=== PATIENT | female | born 1980 | race Two or more races ===

== ENCOUNTER 2016-07-02 14:37 | Emergency (ER) | payer MEDICAID ==
[~2016-07-02] VITALS: Ht 149.9 cm; Wt 68.0 kg
[2016-07-02 15:07] VITALS: BP 121/82
[2016-07-02] MEDS ORDERED: Ketorolac 60mg Inj IM ONE (15:45)
--- NOTE | 2016-07-02 16:49 | Emergency Room Report ---
History of Present Illness General Chief Complaint: Pain Source: Patient Present Illness HPI 35-year-old female presents to emergency Department complaining of 9/10 in severity pain to the right buttock, right side of the lower back in addition to pain, swelling and bruising to the right middle finger status post mechanical slip and fall earlier today. Patient denies hitting her head she denies loss of consciousness. She denies bony tenderness of the back or hip. Denies previous injuries . Denies numbness tingling or loss of sensation or gross motor movements of the extremities, incontinence of bowel or bladder. Denies CP , Palpitations, LOC, AMS, dizziness, Changes in Vision, Sensation, paresthesias , or a sudden severe headache. Allergies: Coded Allergies: No Known Allergies (Unverified , 07/02/16) Patient History Past Medical History: see triage record Past Surgical History: none Pertinent Family History: none Last Menstrual Period: 04/14/16 Now: No Immunizations: UTD Reviewed Nursing Documentation: PMH: Agreed, PSxH: Agreed Nursing Documentation-PMH Past Medical History: No Stated History Review of Systems All Other Systems: negative except mentioned in HPI Physical Exam Vital Signs Date Time Temp Pulse Resp B/P Pulse Ox O2 Delivery O2 Flow Rate FiO2 07/02/16 15:07 98.1 105 17 121/82 98 Room Air Sp02 EP Interpretation: reviewed, normal General Appearance: no apparent distress, alert, GCS 15, non-toxic Head: normocephalic, atraumatic Eyes: bilateral eye PERRL, bilateral eye normal inspection ENT: hearing grossly normal, normal pharynx, no angioedema, normal voice Neck: full range of motion, no bony tend, supple/symm/no masses Respiratory: chest non-tender, lungs clear, normal breath sounds, speaking full sentences Cardiovascular #1: regular rate, rhythm, no edema Musculoskeletal: back normal, gait/station normal, normal range of motion, other - right lateral paraspinal ttp, no midline TTP, TTP to the right upper buttock, no bony ttp, no obvious deformities, TTP, swelling and bruising noted to the right middle finger at the PIP joint, FROM with pain., tender - right lateral paraspinal ttp, no midline TTP, TTP to the right upper buttock, no bony ttp, no obvious deformities, TTP, swelling and bruising noted to the right middle finger at the PIP joint, FROM with pain. Neurologic: alert, oriented x3, responsive, motor strength/tone normal, sensory intact, speech normal Psychiatric: judgement/insight normal, memory normal, mood/affect normal, no suicidal/homicidal ideation Skin: normal color, no rash, warm/dry, well hydrated Medical Decision Making PA Attestation Dr. Baron is my supervising Physician whom patient management has been discussed with. Diagnostic Impression: Primary Impression: Contusion of right hip and thigh Qualified Codes: S70.01XA - Contusion of right hip, initial encounter; S70.11XA - Contusion of right thigh, initial encounter Additional Impressions: Sprained finger and thumb of right hand Qualified Codes: S63.619A - Unspecified sprain of unspecified finger, initial encounter; S63.601A - Unspecified sprain of right thumb, initial encounter Back muscle spasm ER Course 35-year-old female presents to emergency Department complaining of 9/10 in severity pain to the right buttock, right side of the lower back in addition to pain, swelling and bruising to the right middle finger status post mechanical slip and fall earlier today. Patient denies hitting her head she denies loss of consciousness. She denies bony tenderness of the back or hip. Denies previous injuries. Ddx considered but are not limited to Fracture, dislocation, contusion, Sprain/ Strain/Spasm, . Vital signs: are WNL, pt. is afebrile H&PE are most consistent with contusion of right buttock and low back, contusion of finger, will r/o fracture with imaging. ORDERS: - X-ray Right hand 3 views - negative for fx, Dislocation, or significant soft tissue injury, per preliminary read in ED by Dr. Baron ED INTERVENTIONS: - 40mg IM Toradol -350mg Soma PO -Finger Splint applied to the right middle finger by military pay technician. Pt. remains neurovascularly intact. DISCHARGE: At this time pt. is stable for d/c to home. Will provide printed patient care instructions, and any necessary prescriptions. Care plan and follow up instructions have been discussed with the patient prior to discharge. Last Vital Signs Date Time Temp Pulse Resp B/P Pulse Ox O2 Delivery O2 Flow Rate FiO2 07/02/16 15:07 98.1 105 17 121/82 98 Room Air Disposition: HOME, SELF-CARE Condition: Stable Scripts Ibuprofen* (MOTRIN*) 400 Mg Tablet 400 MG ORAL THREE TIMES A DAY, #30 TAB 0 Refills Prov: Natalie Abbott 07/02/16 Acetaminophen* (TYLENOL EXTRA STRENGTH*) 500 Mg Tablet 500 MG ORAL Q6H, #30 TAB 0 Refills Prov: Natalie Abbott 07/02/16 Cyclobenzaprine Hcl* (FLEXERIL*) 10 Mg Tablet 10 MG ORAL THREE TIMES A DAY for 7 Days, #21 TAB Prov: Natalie Abbott 07/02/16 Referrals: NOT CHOSEN IPA/MD,REFERRING (PCP) Patient Instructions: Back Pain, Adult, [id number], Contusion, [id number], Finger Sprain, [id number] Additional Instructions: Take medications as directed. Follow up with PCP in 3-5 days Return sooner to ED if new symptoms occur, or current symptoms become worse. Do not drink alcohol, drive, or operate heavy machinery while taking Muscle relaxer as this may cause drowsiness. - Please note that this Emergency Department Report was dictated using [employer] technology software, occasionally this can lead to erroneous entry secondary to interpretation by the dictation equipment. Natalie Abbott Jul 02, 2016 16:49
[2016-07-02] MEDS ORDERED: CYCLOBENZAPRINE10 MG ORAL (16:50)
[2016-07-02] MEDS ORDERED: IBUPROFEN400 MG ORAL (16:50)
[2016-07-02] MEDS ORDERED: TYLENOL EXTRA500 MG ORAL (16:50)
[2016-07-02 17:03] VITALS: BP 133/99
--- NOTE | 2016-07-29 14:32 | Diagnostic Imaging Report ---
Indication: PAIN, status post fall Technique: 3 views . hand Comparison: none Findings: No acute fractures. No dislocations. Joint spaces are preserved. Impression: Negative
== END 2016-07-02 17:00 | disposition home or self-care (01) ==
LOC: EMR 16:15
DX: S70.01XA Contusion of right hip, initial encounter (principal); S70.11XA Contusion of right thigh, initial encounter; S63.612A Unspecified sprain of right middle finger, initial encounter; S63.601A Unspecified sprain of right thumb, initial encounter; W01.0XXA Fall on same level from slipping, tripping and stumbling without subsequent striking against object, initial encounter; Y93.9 Activity, unspecified; Y92.9 Unspecified place or not applicable; Y99.9 Unspecified external cause status; M62.830 Muscle spasm of back
CPT/HCPCS: 29130; 96372; 99284

== ENCOUNTER 2016-10-03 22:52 | Emergency (ER) | payer MEDICAID ==
[~2016-10-03] VITALS: Ht 149.9 cm; Wt 70.3 kg
[~2016-10-03 22:52] MED LIST: CYCLOBENZAPRINE10 MG ORAL; IBUPROFEN400 MG ORAL; TYLENOL EXTRA500 MG ORAL
[2016-10-03] MEDS ORDERED: DEPO-PROVE150 MG/1 M IM (23:01)
[2016-10-03] MEDS ORDERED: IBUPROFEN600 MG ORAL (23:23)
[2016-10-03] MEDS ORDERED: AZITHROMYCIN250 MG ORAL (23:23)
[2016-10-03] MEDS ORDERED: PSEUDOEPHEDRINE60 MG PO (23:23)
--- NOTE | 2016-10-03 23:24 | Emergency Room Report ---
History of Present Illness General Chief Complaint: Upper Respiratory Illness Source: Patient Present Illness HPI Is a 36-year-old female with no past medical history. She presents with chief complaint of sore throat and coughing. Has been ongoing for last 2 weeks but worse the last few days. Also with low-grade fever the last 2 days. Also with left ear pain. No nausea no vomiting. Worse with coughing. Denies any abdominal pain or urinary complaint. Pain is 7/10. Allergies: Coded Allergies: No Known Allergies (Unverified , 07/02/16) Patient History Past Medical History: see triage record, old chart reviewed Past Surgical History: none Pertinent Family History: none Social History: Denies: smoking Last Menstrual Period: unk Now: No Immunizations: other Reviewed Nursing Documentation: PMH: Agreed, PSxH: Agreed Nursing Documentation-PMH Past Medical History: No Stated History Review of Systems Eye: Denies: blurred vision, eye pain ENT: Reports: ear pain, nose congestion, Denies: throat swelling Respiratory: Reports: cough, Denies: shortness of breath Cardiovascular: Denies: chest pain, palpitations Gastrointestinal: Denies: abdominal pain, diarrhea, nausea, vomiting Musculoskeletal: Denies: back pain, joint pain Skin: Denies: rash Neurological: Denies: headache, numbness Endocrine: Denies: increased thirst, increased urine Hematologic/Lymphatic: Denies: easy bruising All Other Systems: negative except mentioned in HPI Physical Exam Vital Signs Date Time Temp Pulse Resp B/P Pulse Ox O2 Delivery O2 Flow Rate FiO2 10/03/16 22:55 98.4 106 18 105/64 98 Room Air vital is unremarkable Sp02 EP Interpretation: reviewed, normal General Appearance: well appearing, no apparent distress, alert Head: normocephalic, atraumatic Eyes: bilateral eye EOMI, bilateral eye PERRL ENT: hearing grossly normal, normal pharynx, other - Bilateral TMs with myringitis and fluid. Neck: full range of motion, supple, no meningismus Respiratory: chest non-tender, lungs clear, normal breath sounds Cardiovascular #1: regular rate, rhythm, no murmur Gastrointestinal: normal bowel sounds, non tender, no mass, no organomegaly, no bruit, non-distended Musculoskeletal: back normal, gait/station normal, normal range of motion Psychiatric: mood/affect normal Skin: warm/dry Medical Decision Making Diagnostic Impression: Primary Impression: Upper respiratory infection Qualified Codes: J06.9 - Acute upper respiratory infection, unspecified; B97.89 - Other viral agents as the cause of diseases classified elsewhere Additional Impression: Acute otitis media, bilateral ER Course Patient presents with a viral upper rest or infection now complicated by bilateral otitis media. No evidence of sepsis, pneumonia, meningitis to name a few. We'll discharge home. We'll put on antibiotics because of secondary bacterial infection. Chest X-Ray Diagnostic Results Chest X-Ray Ordered: No Last Vital Signs Date Time Temp Pulse Resp B/P Pulse Ox O2 Delivery O2 Flow Rate FiO2 10/03/16 22:55 98.4 106 18 105/64 98 Room Air Status: improved Disposition: HOME, SELF-CARE Condition: Stable Scripts Azithromycin* (ZITHROMAX*) 250 Mg Tablet 250 MG ORAL DAILY, #6 TAB 0 Refills Take two tablets by mouth today, then take one tablet by mouth daily for four days Prov: EDU GODDARD M.D. 10/03/16 Ibuprofen* (MOTRIN*) 600 Mg Tablet 600 MG ORAL THREE TIMES A DAY, #30 TAB 0 Refills Prov: EDU GODDARD M.D. 10/03/16 Pseudoephedrine Hcl* (SUDAFED*) 60 Mg Tablet 60 MG PO Q6H, #20 TAB Prov: EDU GODDARD M.D. 10/03/16 Patient Instructions: Upper Respiratory Infection, Adult Additional Instructions: Followup with your DrJeannette in 7 days. Return if worse. EDU GODDARD M.D. Oct 03, 2016 23:24
[2016-10-03 23:27] VITALS: BP 105/64
== END 2016-10-03 23:27 | disposition home or self-care (01) ==
LOC: EMR 23:10
DX: J06.9 Acute upper respiratory infection, unspecified (principal); H66.93 Otitis media, unspecified, bilateral
CPT/HCPCS: 99284

== ENCOUNTER 2017-02-05 19:17 | Emergency (ER) | payer MEDICAID ==
[~2017-02-05] VITALS: Ht 149.9 cm; Wt 72.6 kg
[~2017-02-05 19:17] MED LIST changes: +AZITHROMYCIN250 MG ORAL; +DEPO-PROVE150 MG/1 M IM; +IBUPROFEN600 MG ORAL; +PSEUDOEPHEDRINE60 MG PO
[2017-02-05] MEDS ORDERED: Methocarbamol 750mg tab ORAL ONE (19:45)
[2017-02-05] MEDS ORDERED: Ketorolac 60mg Inj IM ONE (19:45)
[2017-02-05] MEDS ORDERED: ROBAXIN-750750 MG PO (20:00)
[2017-02-05] MEDS ORDERED: IBUPROFEN600 MG ORAL (20:00)
[2017-02-05 20:08] VITALS: BP 107/66
--- NOTE | 2017-02-05 22:20 | Emergency Room Report ---
History of Present Illness General Chief Complaint: Lower Back Pain or Injury Source: Patient Present Illness HPI The patient is a 36-year-old female presenting for lower back pain which occurred today after slipping and falling. She states that she fell onto her buttock. Pain is an 8/10 dull ache and does not radiate from the lower back. Worse with movement. She denies any numbness or tingling. She denies any previous injury to the back. She denies hitting head or loss of consciousness. She denies any other symptoms including N, V, abd pain, CP, SOB, dizziness Allergies: Coded Allergies: No Known Allergies (Unverified , 07/02/16) Patient History Past Medical History: see triage record Pertinent Family History: none Last Menstrual Period: 1 year ago Now: No Reviewed Nursing Documentation: PMH: Agreed, PSxH: Agreed Nursing Documentation-PMH Past Medical History: No Stated History Review of Systems All Other Systems: negative except mentioned in HPI Physical Exam Vital Signs Date Time Temp Pulse Resp B/P (MAP) Pulse Ox O2 Delivery O2 Flow Rate FiO2 02/05/17 19:20 98.2 92 20 108/67 98 Room Air Sp02 EP Interpretation: reviewed, normal General Appearance: no apparent distress, alert, GCS 15, non-toxic Genitourinary: normal inspection, no CVA tenderness Musculoskeletal: back normal, gait/station normal, normal range of motion, tender - bilat Lumbar paraspinal muscles Neurologic: alert, oriented x3, responsive, motor strength/tone normal, sensory intact, speech normal Psychiatric: judgement/insight normal, memory normal, mood/affect normal, no suicidal/homicidal ideation Skin: normal color, no rash, warm/dry, well hydrated Lymphatic: no adenopathy Medical Decision Making PA Attestation Dr. Price is my supervising physician. Patient management was discussed with my supervising physician Diagnostic Impression: Primary Impression: Muscle strain ER Course The patient is a 36-year-old female presenting for lower back pain Ddx considered include but not limited to lumbar strain, degenerative disease, cauda equina, chronic pain, contusion, among others PE: NAD Normal gait There is tenderness to palpation along the lumbar paraspinal muscles. No midline tenderness or step-offs. The patient is given pain medication and will be discharged home with prescription for Motrin and Robaxin. She needs to followup with her primary doctor. ER precautions given Last Vital Signs Date Time Temp Pulse Resp B/P (MAP) Pulse Ox O2 Delivery O2 Flow Rate FiO2 02/05/17 19:20 98.2 92 20 108/67 98 Room Air Status: improved Disposition: HOME, SELF-CARE Condition: Improved Scripts Methocarbamol* (ROBAXIN-750*) 750 Mg Tablet 750 MG PO TID, #21 TAB 0 Refills Prov: RICKY HDZ 02/05/17 Ibuprofen* (MOTRIN*) 600 Mg Tablet 600 MG ORAL Q8H Y for For Pain, #30 TAB 0 Refills Prov: RICKY HDZ.A. 02/05/17 Referrals: NOT CHOSEN IPA/MD,REFERRING (PCP) Patient Instructions: Back Pain, Adult Additional Instructions: I discussed my findings with the patient. All questions and concerns have been answered. Treatment and medication compliance have been addressed. I advised the patient that they need to follow up with PMD in 3-5 days. Return to ED if symptoms worsen, new symptoms arise, or if needed for any reason. Patient verbalized understanding of discharge instructions. RICKY HDZ Feb 05, 2017 22:20
== END 2017-02-05 20:08 | disposition home or self-care (01) ==
LOC: EMR 19:50
DX: S39.012A Strain of muscle, fascia and tendon of lower back, initial encounter (principal); W19.XXXA Unspecified fall, initial encounter; Y92.89 Other specified places as the place of occurrence of the external cause
CPT/HCPCS: 96372; 99284

== ENCOUNTER 2017-02-11 20:32 | Emergency (ER) | payer MEDICAID ==
[~2017-02-11] VITALS: Ht 149.9 cm; Wt 74.8 kg
[~2017-02-11 20:32] MED LIST changes: +ROBAXIN-750750 MG PO
--- NOTE | 2017-02-11 21:05 | Emergency Room Report ---
History of Present Illness General Chief Complaint: Abdominal Pain Source: Patient Present Illness HPI This is a 36-year-old female with no past medical history. She presents with complaint of left upper quadrant pain for last 3 days. Worse with eating. Pain to the back. Pain is sharp 8/10. Nausea vomiting on the first day but not now. No urinary complaint. No fever or chills. No had this problem before. No right upper quadrant pain. Allergies: Coded Allergies: No Known Allergies (Unverified , 07/02/16) Patient History Past Medical History: see triage record, old chart reviewed Past Surgical History: Pertinent Family History: none Social History: Denies: smoking Last Menstrual Period: Over a year ago, on depo shot Now: No : 3 Immunizations: other Reviewed Nursing Documentation: PMH: Agreed, PSxH: Agreed Nursing Documentation-PMH Past Medical History: No Stated History Review of Systems Eye: Denies: eye pain, blurred vision ENT: Denies: ear pain, nose congestion, throat swelling Respiratory: Denies: cough, shortness of breath Cardiovascular: Denies: chest pain, palpitations Gastrointestinal: Reports: abdominal pain, nausea, vomiting, Denies: diarrhea Musculoskeletal: Denies: back pain, joint pain Skin: Denies: rash Neurological: Denies: headache, numbness Endocrine: Denies: increased thirst, increased urine Hematologic/Lymphatic: Denies: easy bruising All Other Systems: negative except mentioned in HPI Physical Exam Vital Signs Date Time Temp Pulse Resp B/P (MAP) Pulse Ox O2 Delivery O2 Flow Rate FiO2 02/11/17 20:34 98.6 82 18 107/73 98 Room Air vitals normal Sp02 EP Interpretation: reviewed, normal General Appearance: well appearing, no apparent distress, alert Head: normocephalic, atraumatic Eyes: bilateral eye PERRL, bilateral eye EOMI ENT: hearing grossly normal, normal pharynx Neck: full range of motion, supple, no meningismus Respiratory: chest non-tender, lungs clear, normal breath sounds Cardiovascular #1: regular rate, rhythm, no murmur Gastrointestinal: normal bowel sounds, no mass, no organomegaly, no bruit, non- distended, tenderness - Mild left quadrant pain. No guarding or rebound. Musculoskeletal: back normal, gait/station normal, normal range of motion Psychiatric: mood/affect normal Skin: warm/dry Medical Decision Making Diagnostic Impression: Primary Impression: Abdominal pain Qualified Codes: R10.12 - Left upper quadrant pain ER Course This patient presents with left upper quadrant abdominal pain. CT scan unremarkable. Pain resolved. No evidence of acute abdomen or surgical issue. Obstruction. Lab Results Impression labs normal CT/MRI/US Diagnostic Results CT/MRI/US Diagnostic Results : Imaging Test Ordered: CT scan Impression read by radiologist. Negative. Last Vital Signs Date Time Temp Pulse Resp B/P (MAP) Pulse Ox O2 Delivery O2 Flow Rate FiO2 02/11/17 20:34 98.6 82 18 107/73 98 Room Air Status: improved Disposition: HOME, SELF-CARE Condition: Stable Scripts Ibuprofen* (MOTRIN*) 600 Mg Tablet 600 MG ORAL Q8H Y for For Pain, #30 TAB 0 Refills Prov: EDU GODDARD M.D. 02/11/17 Patient Instructions: Abdominal Pain, Adult Additional Instructions: Follow up with your doctor in 7 days. Return if worse. EDU GODDARD M.D. Feb 11, 2017 21:05
[2017-02-11] MEDS ORDERED: Ketorolac 30mg Inj IV ONE (21:15)
[2017-02-11 21:40] LABS: APPEARANCE,URINE CLEAR; KETONES,URINE NEGATIVE (NEGATIVE); LEUKOCYTE ESTERASE ,URINE 1+ (NEGATIVE); NITRITE,URINE NEGATIVE (NEGATIVE); PH,URINE 5 (4.5-8.0); PROTEIN,URINE NEGATIVE (NEGATIVE); UROBILINOGEN,URINE NORMAL MG/DL (0.0-1.0)
[2017-02-11 21:46] LABS: EOSINOPHILS % (AUTO) 2.4 % (0.0-3.0); LYMPHOCYTES % (AUTO) 27.3 % (20.0-45.0); MEAN CORPUSCULAR HEMOGLOBIN 30.5 PG (27.0-31.0); MEAN CORPUSCULAR HGB CONC 32.2 G/DL (32.0-36.0); MEAN CORPUSCULAR VOLUME 95 FL (80-99); MEAN PLATELET VOLUME 7.1 FL (6.5-10.1); MONOCYTES % (AUTO) 7.7 % (1.0-10.0); NEUTROPHILS % (AUTO) 61.5 % (45.0-75.0); PLATELET COUNT 284 K/UL (150-450); RED CELL DISTRIBUTION WIDTH 11.7 % (11.6-14.8); WHITE BLOOD COUNT 9.6 K/UL (4.8-10.8)
[2017-02-11 21:50] LABS: BACTERIA,URINE FEW /HPF; SQUAMOUS EPITHELIAL CELL,UR FEW /LPF (NONE/OCC); WBC,URINE 0-2 /HPF (0 - 2)
[2017-02-11 21:53] LABS: ALANINE AMINOTRANSFERASE 35 U/L (12-78); ANION GAP 8 mmol/L (5-15); ASPARTATE AMINO TRANSFERASE 21 U/L (15-37); CALCIUM 9.3 MG/DL (8.5-10.1); CARBON DIOXIDE 27 MMOL/L (21-32); CHLORIDE 105 MMOL/L (98-107); CREATININE 0.6 MG/DL (0.55-1.30); GLOMERULAR FILTRATION RATE > 60 mL/min (>60); LIPASE 137 U/L (73-393); POTASSIUM 3.9 MMOL/L (3.5-5.1); SODIUM 140 MMOL/L (136-145); TOTAL PROTEIN 7.5 G/DL (6.4-8.2)
[2017-02-11] MEDS ORDERED: IBUPROFEN600 MG ORAL (22:31)
[2017-02-11 22:40] VITALS: BP 110/62
[2017-02-11 22:42] VITALS: BP 110/62
--- NOTE | 2017-02-12 09:04 | Diagnostic Imaging Report ---
Indication: Left upper quadrant pain Technique: Spiral acquisitions obtained through the abdomen and pelvis. No oral contrast utilized, per emergency room physician request No IV contrast utilized, per referring physician request.. Multiplanar reconstructions were generated. Total dose length product 822 mGycm. CTDIvol(s) 17 mGy. Dose reduction achieved using automated exposure control Comparison: None Findings: The appendix is not definitely identified, but no findings to suggest acute appendicitis are evident. There is no evidence of diverticulosis or diverticulitis. No small bowel distention. No free or loculated intraperitoneal air or fluid is evident. There is a tiny fat-containing umbilical hernia Lack of IV contrast limits assessment of the solid organs. The liver, gallbladder, bile ducts, pancreas, spleen, adrenals, kidneys are unremarkable. No retroperitoneal or mesenteric mass or adenopathy. No pelvic mass or adenopathy. Normal uterus and adnexal structures. The the included lung bases are clear. The bones are unremarkable. Impression: Essentially unremarkable exam Incidental finding small fat-containing umbilical hernia This agrees with the preliminary interpretation provided overnight by [facility]erad[facility] service. The CT scanner at [facility] is accredited by the [employer] and the scans are performed using protocols designed to limit radiation exposure to as low as reasonably achievable to attain images of sufficient resolution adequate for diagnostic evaluation.
== END 2017-02-11 22:42 | disposition home or self-care (01) ==
LOC: EMR 21:10
DX: R10.12 Left upper quadrant pain (principal); K42.9 Umbilical hernia without obstruction or gangrene
CPT/HCPCS: 36415; 74176; 80053; 81003; 81025; 83690; 85025; 96361; 96374; 99284; J1885

== ENCOUNTER 2017-07-04 15:22 | Emergency (ER) | payer SELFPAY ==
[~2017-07-04] VITALS: Ht 149.9 cm; Wt 73.0 kg
--- NOTE | 2017-07-04 15:30 | Emergency Room Report ---
History of Present Illness General Chief Complaint: Upper Respiratory Illness Source: Patient Present Illness HPI 36 yo female patient presents to ER complaining of fever, cough, ear pain, and BOSWELL x1 week. Patient reports cough with sputum; denies blood in sputum. Denies nausea, vomiting, diarrhea. Reports ear pain bilaterally, denies hearing loss. Reports taking Mucinex and Ibuprofen for pain. Reports fever to 104 degrees 3 days ago; no fever today at presentation to ER. Reports BOSWELL and sore throat began after cough symptoms. Denies chest pain, abdominal pain, SOB. Denies dysuria, hematuria, vaginal discharge. Denies rash, vision changes, hearing loss. Reports hx of sick contacts. Denies hx of asthma or cardiovascular disease. Allergies: Coded Allergies: No Known Allergies (Unverified , 07/02/16) Patient History Past Medical History: see triage record Reviewed Nursing Documentation: PMH: Agreed, PSxH: Agreed Nursing Documentation-PMH Past Medical History: No Stated History Review of Systems All Other Systems: negative except mentioned in HPI Physical Exam Vital Signs Date Time Temp Pulse Resp B/P (MAP) Pulse Ox O2 Delivery O2 Flow Rate FiO2 07/04/17 15:25 98.6 92 20 91/64 98 Room Air 98.6 Sp02 EP Interpretation: reviewed, normal General Appearance: well appearing, no apparent distress, alert, GCS 15 Head: normocephalic, atraumatic Eyes: bilateral eye normal inspection, bilateral eye PERRL ENT: hearing grossly normal, normal pharynx, no angioedema, normal voice, TMs + canals normal, uvula midline, moist mucus membranes Neck: full range of motion Respiratory: lungs clear, normal breath sounds, no rhonchi, no respiratory distress, no accessory muscle use, no wheezing, speaking full sentences Cardiovascular #1: regular rate, rhythm, no edema Gastrointestinal: non tender, soft, no mass, non-distended, no guarding, no rebound Genitourinary: no CVA tenderness Musculoskeletal: back normal, digits/nails normal, gait/station normal, normal range of motion, non-tender Neurologic: alert, oriented x3, responsive, motor strength/tone normal, sensory intact Psychiatric: mood/affect normal Skin: no rash Lymphatic: no adenopathy Medical Decision Making PA Attestation Dr. Price is my supervising Physician whom patient management has been discussed with. Diagnostic Impression: Primary Impression: Upper respiratory infection Additional Impression: Ear ache ER Course Pt presents to ED c/o fever, cough, ear pain, and BOSWELL. DDX considered but are not limited to influenza, viral URI, strep throat, rhinitis, sinusitis, otitis media, pharyngitis, tonsillitis. VITAL SIGNS are WNL, patient is afebrile Ordered pain medication and viscous lidocaine. ER COURSE: PE benign, lungs clear to auscultation bilaterally, normal TM, no exudates in throat. Informed patient likely viral etiology of symptoms. Informed patient ear ache and BOSWELL may be secondary to cough symptoms. Denies chest pain, SOB; does not require workup at this time. DISCHARGE: At this time pt is stable for d/c to home. Patient is resting comfortably, in no acute distress, nontoxic appearing, smiling and laughing while talking. -Rx given for Sudafed -Rx given for Tylenol/Acetaminophen -Rx given for Promethazine syrup for cough sx. Patient to take medications as instructed Will provide with patient care instructions and any necessary prescriptions. Care plan and follow-up instructions provided. Patient instructed to follow-up with primary care provider in 3 - 5 days. Patient questions asked and answered. Patient reports understanding and agreement to treatment plan. ER precautions given. Patient instructed to return to ER immediately for any new or worsening of symptoms including but not limited to increasing SOB, persistent fever, intractable vomiting. Last Vital Signs Date Time Temp Pulse Resp B/P (MAP) Pulse Ox O2 Delivery O2 Flow Rate FiO2 07/04/17 15:25 98.6 92 20 91/64 98 Room Air 98.6 Disposition: HOME, SELF-CARE Condition: Stable Scripts Promethazine Hcl (PROMETHAZINE HCL*) 6.25 Mg/5 Ml Syrup 5 ML ORAL Q8H, #120 ML 0 Refills Prov: Liam Palomino.A. 07/04/17 Pseudoephedrine Hcl* (SUDAFED*) 30 Mg Tablet 30 MG PO Q6H for 7 Days, #24 TAB Prov: Liam Palomino.A. 07/04/17 Acetaminophen* (TYLENOL EXTRA STRENGTH*) 500 Mg Tablet 500 MG ORAL Q8H Y for Prn Headache/Temp > 101, #30 TAB 0 Refills Prov: Liam Palomino. 07/04/17 Patient Instructions: Earache, Upper Respiratory Infection, Adult Additional Instructions: Followup with primary care provider in 3 -5 days. Take medications as directed. Patient questions asked and answered. ER precautions given, patient instructed to return to ER immediately for any new or worsening of symptoms including but not limited to chest pain, SOB, intractable vomiting, prolonged fever. Liam Palomino Jul 04, 2017 15:30
[2017-07-04] MEDS ORDERED: TYLENOL EXTRA500 MG ORAL (15:44)
[2017-07-04] MEDS ORDERED: PSEUDOEPHEDRINE30 MG PO (15:44)
[2017-07-04] MEDS ORDERED: PROMETHAZI6.25 MG/1 ORAL (15:44)
[2017-07-04] MEDS ORDERED: Acetaminophen 500mg (ES) tab ORAL ONE (15:45)
[2017-07-04] MEDS ORDERED: Lidocaine 2% Visc 15ml soln ORAL ONE (15:45)
[2017-07-04 15:54] VITALS: BP 91/64
== END 2017-07-04 15:54 | disposition home or self-care (01) ==
LOC: EMR 15:50
DX: J06.9 Acute upper respiratory infection, unspecified (principal); H92.03 Otalgia, bilateral
CPT/HCPCS: 99284

== ENCOUNTER 2017-08-01 14:30 | Emergency (ER) | payer SELFPAY ==
[~2017-08-01] VITALS: Ht 149.9 cm; Wt 74.8 kg
[~2017-08-01 14:30] MED LIST changes: +PROMETHAZI6.25 MG/1 ORAL; +PSEUDOEPHEDRINE30 MG PO
[2017-08-01] MEDS ORDERED: NKM (14:48)
[2017-08-01] MEDS ORDERED: HYDROcodone/Acetamin 7.5/325 tab ORAL ONE (15:00)
--- NOTE | 2017-08-01 15:11 | Emergency Room Report ---
History of Present Illness General Chief Complaint: Upper Extremity Injury Source: Patient Present Illness HPI 36-year-old female presents to the emergency department complaining of 8 out of 10 in severity localized pain to the right hand, right wrist and left ankle. Status post mechanical trip and fall while cleaning earlier today. Patient reports pain is exacerbated upon ambulation. Patient states that she fell on an outstretched arm. Patient reports tenderness to the hand and right wrist. She denies hitting her head or loss of consciousness. She denies open wounds or bleeding. Denies neck or back pain. Denies numbness tingling or loss of sensation or gross motor movements of the extremities, incontinence of bowel or bladder. Denies CP, Palpitations, LOC, AMS, dizziness, Changes in Vision, Sensation, paresthesias, or a sudden severe headache. Allergies: Coded Allergies: No Known Allergies (Unverified , 07/02/16) Patient History Past Medical History: see triage record Past Surgical History: none Pertinent Family History: none Last Menstrual Period: over a year ( on depo shot) Reviewed Nursing Documentation: PMH: Agreed; PSxH: Agreed Nursing Documentation-PMH Past Medical History: No Stated History Review of Systems All Other Systems: negative except mentioned in HPI Physical Exam Vital Signs Date Time Temp Pulse Resp B/P (MAP) Pulse Ox O2 Delivery O2 Flow Rate FiO2 08/01/17 14:43 98.6 113 18 107/72 96 98.6 Sp02 EP Interpretation: reviewed, normal General Appearance: no apparent distress, alert, GCS 15, non-toxic, mild distress Head: normocephalic, atraumatic ENT: hearing grossly normal, normal voice Neck: full range of motion, no bony tend Respiratory: lungs clear, normal breath sounds, speaking full sentences Cardiovascular #1: regular rate, rhythm, normal capillary refill Musculoskeletal: back normal, normal range of motion - with pain, tender - Tenderness to palpation to the right wrist, positive snuff box tenderness to palpation and pain with axial loading of the right thumb. Patient also has lateral tenderness to palpation to the left ankle some soft tissue swelling is noted. No bruises, increased laxity of the ankle ,open wounds or obvious deformities. Neurologic: alert, oriented x3, responsive, motor strength/tone normal, sensory intact, speech normal, grossly normal Psychiatric: judgement/insight normal Skin: normal color, no rash, warm/dry, well hydrated, other - left ankle ST swelling. Medical Decision Making PA Attestation Dr. Shah is my supervising Physician whom patient management has been discussed with. Diagnostic Impression: Primary Impression: Left ankle sprain Qualified Codes: S93.402A - Sprain of unspecified ligament of left ankle, initial encounter Additional Impressions: Hand pain, right Wrist fracture, right Qualified Codes: S62.101A - Fracture of unspecified carpal bone, right wrist, initial encounter for closed fracture ER Course 36-year-old female presents to the emergency department complaining of 8 out of 10 in severity localized pain to the right hand, right wrist and left ankle. Status post mechanical trip and fall while cleaning earlier today. Patient reports pain is exacerbated upon ambulation. Patient states that she fell on an outstretched arm. Patient reports tenderness to the hand and right wrist. She denies hitting her head or loss of consciousness. She denies open wounds or bleeding. Denies neck or back pain. Denies numbness tingling or loss of sensation or gross motor movements of the extremities, incontinence of bowel or bladder. Denies CP, Palpitations, LOC, AMS, dizziness, Changes in Vision, Sensation, paresthesias, or a sudden severe headache. Ddx considered but are not limited to Fracture, dislocation, contusion, Sprain/ Strain/Spasm, scaphoid fx just to name a few. Vital signs: are WNL, pt. is afebrile H&PE are most consistent with musculoskeletal injury will perform imaging to r/ o fractures/dislocations. ORDERS: - X-ray's : no obvious fractures seen, some ST swelling of the ankle due to pt. having positive snuffbox ttp, and pain with axial loading on the right hand, she will be treated with anticipated scaphoid fx until cleared by ortho or pcp. ED INTERVENTIONS: - Nisland PO -Thumb Spika Splint applied to the right hand by sow farm barn technician. Pt. remains neurovascularly intact. Diomedes wrap applied to the left ankle. by sow farm barn technician. Pt. remains neurovascularly intact. DISCHARGE: At this time pt. is stable for d/c to home. Will provide printed patient care instructions, and any necessary prescriptions. Care plan and follow up instructions have been discussed with the patient prior to discharge. Other X-Ray Diagnostic Results Other X-Ray Diagnostic Results #1: X-Ray ordered: Right Hand # of Views/Limited Vs Complete: 3 View Indication: Pain EP Interpretation: Yes PA Xray: Interpretation reviewed, by supervising MD, and agrees with findings. Interpretation: no dislocation, no soft tissue swelling, no fractures Impression: No acute disease Electronically Signed by: Natalie Abbott PA-C Other X-Ray Diagnostic Results #2: X-Ray ordered: Right Wrist # of Views/Limited Vs Complete: 3 View Indication: Pain EP Interpretation: Yes PA Xray: Interpretation reviewed, by supervising MD, and agrees with findings. Interpretation: no dislocation, no soft tissue swelling, no fractures Impression: No acute disease Electronically Signed by: Natalie Abbott PA-C Other X-Ray Diagnostic Results #3: X-Ray ordered: Left Ankle Indication: Pain EP Interpretation: Yes PA Xray: Interpretation reviewed, by supervising MD, and agrees with findings. Interpretation: no dislocation, no fractures, other - ST Swelling noted Impression: Other - abnormal : ST swelling, no acute fx's. Electronically Signed by: Natalie Abbott PA-C Last Vital Signs Date Time Temp Pulse Resp B/P (MAP) Pulse Ox O2 Delivery O2 Flow Rate FiO2 08/01/17 15:05 98.6 08/01/17 14:43 113 18 107/72 96 Disposition: HOME, SELF-CARE Condition: Stable Scripts Hydrocodone Bit/Acetaminophen 5-325* (NORCO 5-325*) 1 Each Tablet 1 TAB ORAL Q6H PRN for For Pain, #10 TAB 0 Refills Prov: Natalie Abbott P.A. 08/01/17 Ibuprofen* (MOTRIN*) 600 Mg Tablet 600 MG ORAL THREE TIMES A DAY, #30 TAB 0 Refills Prov: Natalie Abbott P.A. 08/01/17 Patient Instructions: Ankle Sprain, Scaphoid Fracture, Wrist Additional Instructions: Take medications as directed. Follow up with a Orthopedic in 3-5 days, even if your symptoms have resolved. --Please review list of primary care clinics, if you do not already have a primary care provider Return sooner to ED if new symptoms occur, or current symptoms become worse. Do not drink alcohol, drive, or operate heavy machinery while taking Nisland as this may cause drowsiness. - Please note that this Emergency Department Report was dictated using ENEFpromotor rebuilder technology software, occasionally this can lead to erroneous entry secondary to interpretation by the dictation equipment. Natalie Abbott Aug 01, 2017 15:11
[2017-08-01] MEDS ORDERED: IBUPROFEN600 MG ORAL (15:57)
[2017-08-01] MEDS ORDERED: NORCO 5-325 TA1 EACH ORAL (15:57)
[2017-08-01 16:40] VITALS: BP 107/72
--- NOTE | 2017-08-02 10:22 | Diagnostic Imaging Report ---
Indication: pain Right hand pain Findings: 3 views of the right hand were obtained. Normal bony mineralization and alignment are demonstrated. No acute fractures, erosions, or periosteal reaction are seen. Soft tissues are unremarkable. Impression: No acute findings.
--- NOTE | 2017-08-02 10:22 | Diagnostic Imaging Report ---
Indication: Pain Findings: 3 views of the right wrist were obtained. No acute fractures, malalignment, erosions or periostitis are identified. Soft tissues are unremarkable. Impression: No acute findings.
--- NOTE | 2017-08-02 10:23 | Diagnostic Imaging Report ---
Indication: left ankle pain Comparison: None Findings: 3 views of the left ankle obtained. No acute fracture, malalignment, periostitis, or osteochondral defects are identified. Soft tissues are unremarkable. Impression: No acute findings
== END 2017-08-01 16:40 | disposition home or self-care (01) ==
LOC: EMR 14:50
DX: S93.402A Sprain of unspecified ligament of left ankle, initial encounter (principal); M25.541 Pain in joints of right hand; S62.101A Fracture of unspecified carpal bone, right wrist, initial encounter for closed fracture; W01.0XXA Fall on same level from slipping, tripping and stumbling without subsequent striking against object, initial encounter; Y93.9 Activity, unspecified; Y92.9 Unspecified place or not applicable
CPT/HCPCS: 99284

== ENCOUNTER 2017-10-28 10:10 | Emergency (ER) | payer SELFPAY ==
[~2017-10-28] VITALS: Ht 149.9 cm; Wt 72.6 kg
[~2017-10-28 10:10] MED LIST changes: +NKM; +NORCO 5-325 TA1 EACH ORAL
[2017-10-28] MEDS ORDERED: Dexamethasone 4mg/ml vial IM ONE (10:30)
--- NOTE | 2017-10-28 10:31 | Emergency Room Report ---
History of Present Illness General Chief Complaint: Sore Throat Source: Patient Present Illness HPI 37-year-old female presents emergency department complaining of 10 out of 10 in severity left-sided sore throat pain with fevers since this morning. Patient states that she took Motrin at approximately male he 2 AM. Patient denies cough , shortness of breath, or wheezing. Patient denies recent travel or ill contacts. Denies ear pain, lethargy, neck pain/stiffness, irritability, photophobia dehydration, N/V/D. Denies Cp, Palpitations, LOC, AMS, seizures, paresthesias, or changes in Hearing or vision, no Sudden severe BOSWELL. Denies hx of smoking, asthma or COPD. Allergies: Coded Allergies: No Known Allergies (Unverified , 07/02/16) Patient History Past Medical History: see triage record Past Surgical History: none Pertinent Family History: none Last Menstrual Period: 10/21/17 Now: No Immunizations: UTD Reviewed Nursing Documentation: PMH: Agreed; PSxH: Agreed Nursing Documentation-PMH Past Medical History: No Stated History Review of Systems All Other Systems: negative except mentioned in HPI Physical Exam Vital Signs Date Time Temp Pulse Resp B/P (MAP) Pulse Ox O2 Delivery O2 Flow Rate FiO2 10/28/17 10:14 98.2 79 16 114/78 97 Room Air 98.2 Sp02 EP Interpretation: reviewed, normal General Appearance: no apparent distress, alert, GCS 15, non-toxic Head: normocephalic, atraumatic Eyes: bilateral eye normal inspection, bilateral eye PERRL ENT: hearing grossly normal, normal voice, TMs + canals normal, uvula midline, moist mucus membranes, tonsillar swelling, pharyngeal erythema, tonsillar exudate Neck: full range of motion, no meningismus, no bony tend Respiratory: chest non-tender, lungs clear, normal breath sounds, no wheezing, speaking full sentences Cardiovascular #1: regular rate, rhythm Musculoskeletal: back normal, gait/station normal, normal range of motion, non- tender Neurologic: alert, oriented x3, responsive, motor strength/tone normal, sensory intact, speech normal, grossly normal Psychiatric: judgement/insight normal Skin: normal color, no rash, warm/dry, well hydrated Lymphatic: no adenopathy Medical Decision Making PA Attestation Dr. swann is my supervising Physician whom patient management has been discussed with. Diagnostic Impression: Primary Impression: Pharyngitis, acute Qualified Codes: J02.0 - Streptococcal pharyngitis ER Course 37-year-old female presents emergency department complaining of 10 out of 10 in severity left-sided sore throat pain with fevers since this morning. Patient states that she took Motrin at approximately male he 2 AM. Patient denies cough , shortness of breath, or wheezing. Patient denies recent travel or ill contacts. Denies ear pain, lethargy, neck pain/stiffness, irritability, photophobia dehydration, N/V/D. Denies Cp, Palpitations, LOC, AMS, seizures, paresthesias, or changes in Hearing or vision, no Sudden severe BOSWELL. Denies hx of smoking, asthma or COPD. Ddx considered but are not limited to: pharyngitis, strep, DISTRIBUTION ASSOCIATE, ludwigs angina, URI Vital signs: are WNL, pt. is afebrile H&PE are most consistent with: pharyngitis presumed strep. ORDERS: None required at this time as the diagnosis is clinical ED INTERVENTIONS: none required at this time. DISCHARGE: At this time pt. is stable for d/c to home. Will provide printed patient care instructions, and any necessary prescriptions. Care plan and follow up instructions have been discussed with the patient prior to discharge. Last Vital Signs Date Time Temp Pulse Resp B/P (MAP) Pulse Ox O2 Delivery O2 Flow Rate FiO2 10/28/17 10:14 98.2 79 16 114/78 97 Room Air 98.2 Disposition: HOME, SELF-CARE Condition: Stable Scripts Lidocaine HCl 2% Viscous (Lidocaine HCl 2% Viscous) 100 Ml Solution 15 ML ORAL QID, #150 ML Prov: Natalie Abbott 10/28/17 Acetaminophen* (TYLENOL EXTRA STRENGTH*) 500 Mg Tablet 500 MG ORAL Q6H PRN for Mild Pain/Temp > 100.5, #20 TAB 0 Refills Prov: Natalie Abbott 10/28/17 Amoxicillin* (AMOXIL*) 500 Mg Capsule 500 MG ORAL Q12HR for 7 Days, #14 CAP Prov: Natalie Abbott 10/28/17 Patient Instructions: Sore Throat Additional Instructions: Take medications as directed. Follow up with your primary care provider in 3-5 days. Return to the ED sooner if your symptoms become worse, or new symptoms appear. Natalie Abbott Oct 28, 2017 10:31
[2017-10-28] MEDS ORDERED: LIDOCAINE VISC100 ML ORAL (10:33)
[2017-10-28] MEDS ORDERED: TYLENOL EXTRA500 MG ORAL (10:33)
[2017-10-28] MEDS ORDERED: AMOXICILLIN500 MG ORAL (10:33)
[2017-10-28] MEDS ORDERED: Lidocaine 2% Visc 15ml soln ORAL ONE (11:00)
[2017-10-28 12:34] VITALS: BP 114/78
== END 2017-10-28 11:00 | disposition home or self-care (01) ==
LOC: EMR 11:00
DX: J02.9 Acute pharyngitis, unspecified (principal)
CPT/HCPCS: 99284; J1100

== ENCOUNTER 2018-01-21 12:00 | Emergency (ER) | payer SELFPAY ==
[~2018-01-21] VITALS: Ht 149.9 cm; Wt 74.8 kg
[~2018-01-21 12:00] MED LIST changes: +AMOXICILLIN500 MG ORAL; +LIDOCAINE VISC100 ML ORAL
[2018-01-21 12:15] VITALS: BP 115/78
[2018-01-21] MEDS ORDERED: BACITRACIN-P28.35 GM TP (12:32)
[2018-01-21] MEDS ORDERED: HYDROCORTISONE30 G2 TP (12:32)
[2018-01-21] MEDS ORDERED: PREDNISONE20 MG ORAL (12:32)
--- NOTE | 2018-01-21 12:33 | Emergency Room Report ---
History of Present Illness General Chief Complaint: Skin Rash/Abscess Source: Patient Present Illness HPI 37-year-old female patient presents ER complaining of bites on her right upper and right lower extremity the past 3 days. Reports extremely pruritic. Reports history of similar symptoms weeks ago, states she took Benadryl at that time and cleared week. 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 Reports she took Benadryl for itching symptoms.. Denies fever, chest or shortness of breath. denies history of diabetes. Allergies: Coded Allergies: No Known Allergies (Unverified , 07/02/16) Patient History Past Medical History: see triage record Last Menstrual Period: last week Now: No Reviewed Nursing Documentation: PMH: Agreed; PSxH: Agreed Nursing Documentation-PMH Past Medical History: No Stated History Review of Systems All Other Systems: negative except mentioned in HPI Physical Exam Vital Signs Date Time Temp Pulse Resp B/P (MAP) Pulse Ox O2 Delivery O2 Flow Rate FiO2 01/21/18 12:05 98.7 98 18 115/78 97 Room Air 98.8 General Appearance: well appearing, no apparent distress, alert, GCS 15, non- toxic Head: normocephalic, atraumatic Eyes: bilateral eye normal inspection, bilateral eye PERRL ENT: hearing grossly normal, normal pharynx, no angioedema, normal voice, uvula midline, moist mucus membranes Neck: full range of motion Respiratory: lungs clear, normal breath sounds, no rhonchi, no respiratory distress, no accessory muscle use, no wheezing, speaking full sentences Cardiovascular #1: regular rate, rhythm, no edema Musculoskeletal: back normal, digits/nails normal, gait/station normal, normal range of motion, non-tender Psychiatric: mood/affect normal Skin: other - erythematous urticaria noted on right upper extremity and right lower extremity, mild edema, no surrounding erythema or edema, no wound drainage , no fluctuance or induration, no central clearing, no warmth to touch, no red streaking, some excoriations noted Lymphatic: no adenopathy Medical Decision Making PA Attestation Dr. Black is my supervising Physician whom patient management has been discussed with. Diagnostic Impression: Primary Impression: Bug bite ER Course Pt. presents to the ED c/o bug bite. Ddx considered but are not limited to atopic dermatitis, bug bite, urticaria, allergic reaction. Vital signs: are WNL, pt. is afebrile ER COURSE: physical exam consistent with likely bug bites, no fluctuance or induration, low suspicion for cellulitis or abscess. does not require oral antibiotics. will provide patient with dose of prednisone here Rx to go home with for itching symptoms. due to presence of excoriations, will provide bacitracin to prevent infection. take Benadryl at night for itching symptoms, SE drowsiness, do not take prior to drinking, driving, operating heavy machinery. Do not scratch, apply cool compresses to affected area. Followup with PCP and request referral to derm. provided with contact information for free and low-cost healthcare clinics to establish care. DISCHARGE: -Rx given for prednisone for pruritis. -Rx given for hydrocortisone cream. Do not apply to face or skin creases. -Rx provided for Bacitracin At this time pt. is stable for d/c to home. Patient resting comfortably, in no acute distress, nontoxic appearing. Care plan and follow up instructions have been discussed with the patient prior to discharge. Patient provided with printed patient care instructions, and any necessary prescriptions. Patient instructed to follow-up with primary care provider in 3 - 5 days. Patient questions asked and answered. Patient reports understanding and agreement to treatment plan. ER precautions given. Patient instructed to return to ER immediately for any new or worsening of symptoms including but not limited to increasing SOB, persistent fever. Last Vital Signs Date Time Temp Pulse Resp B/P (MAP) Pulse Ox O2 Delivery O2 Flow Rate FiO2 01/21/18 12:15 98.8 18 115/78 97 Room Air 98.8 01/21/18 12:05 98 Disposition: HOME, SELF-CARE Condition: Stable Scripts Hydrocortisone (Hydrocortisone Cream 2.5%) Y Cream.appl 1 APPLIC TP BID, #28 GM Prov: Liam Palomino 01/21/18 Bacitracin/Polymyxin B Sulfate (BACITRACIN-POLYMYXIN OINTMENT) 28.35 Gm Oint...g. 1 APPLIC TP BID, #28 GM Prov: Liam Palomino.AJeannette 01/21/18 Prednisone* (PREDNISONE*) 20 Mg Tablet 40 MG ORAL DAILY for 2 Days, #4 TAB Prov: Liam Palomino 01/21/18 Referrals: NOT CHOSEN IPA/,REFERRING (PCP) Patient Instructions: Insect Bite, [id number]-[id number] Additional Instructions: Followup with primary care provider in 3 -5 days. Request referral to dermatology. Do not scratch or itch. Apply cool compresses to affected area. Take medications as directed. Do not apply medication to face or skin creases. SE Benadryl drowsiness, do not take prior to drinking, driving, operating heavy machinery. First dose of steroid provided in ER, beginning taking prednisone medication tomorrow. Patient questions asked and answered. ER precautions given, patient instructed to return to ER immediately for any new or worsening of symptoms. [facility] [place] [facility] Liam Palomino Jan 21, 2018 12:33
[2018-01-21 12:44] VITALS: BP 115/78
== END 2018-01-21 12:44 | disposition home or self-care (01) ==
LOC: EMR 12:20
DX: S40.861A Insect bite (nonvenomous) of right upper arm, initial encounter (principal); S80.861A Insect bite (nonvenomous), right lower leg, initial encounter; W57.XXXA Bitten or stung by nonvenomous insect and other nonvenomous arthropods, initial encounter; Y93.9 Activity, unspecified; Y92.9 Unspecified place or not applicable
CPT/HCPCS: 99283; J7512